=== PATIENT | male | born 1965 | race Caucasian/White ===

== ENCOUNTER 2019-08-28 07:00 | Outpatient (CLI) | payer BC, SELFPAY ==
[2019-08-28 07:12] LABS: Add Urine Microscopic? NO; Appearance Urine Clear (Clear); Bilirubin Urine Negative (Negative); Blood Urine Negative (Negative); Color Urine Yellow (Yellow); Glucose Urine UA Negative (Negative); Ketones Urine Negative (Negative); Leukocyte Esterase Ur Negative (Negative); Nitrate Urine Negative (Negative); Protein Urine Negative (Negative); Urobilinogen Urine 0.2 mg/dL (0.2-1.0)
[2019-08-28 07:18] LABS: Basophils Absolute Auto 0.05 K/mm3 (0.00-0.10); Eosinophils Absolute Auto 0.17 K/mm3 (0.02-0.50); Eosinophils Percent Auto 3.4 % (1.0-6.0); Hematocrit 43.8 % (40.0-54.0); Hemoglobin 14.2 g/dL (14.0-18.0); Immature Granulocyte Absolute 0.02 K/mm3 (0.00-0.00); Immature Granulocyte Percent A 0.4 % (0.0-0.0); Lymphocytes Absolute Auto 2.16 K/mm3 (1.10-4.50); Lymphocytes Percent Auto 43.6 % (18.0-42.0); Mean Corpuscular HGB Conc 32.4 g/dL (32.0-36.0); Mean Corpuscular Hemoglobin 29.1 pg (27.0-31.0); Mean Corpuscular Volume 89.8 fL (78.0-102.0); Mean Platelet Volume 10.7 fl (8.7-11.0); Monocytes Percent Auto 8.1 % (2.0-11.0); Neutrophils Absolute Auto 2.2 K/mm3 (1.7-7.2); Neutrophils Percent Auto 43.5 % (50.0-70.0); Platelet Count Result 222 K/mm3 (150-420); Red Blood Count 4.88 M/mm3 (4.70-6.10); Red Cell Distribution Width 12.4 % (11.6-14.4)
[2019-08-28 08:18] LABS: Alanine Aminotransferase 45 U/L (16-63); Albumin Level 3.9 g/dL (3.4-5.0); Alkaline Phosphatase 66 U/L (46-116); Anion Gap 12.7 mmol/L (7-16); Aspartate Amino Transferase 25 U/L (15-37); Bilirubin,Total 0.4 mg/dL (0.00-1.00); Blood Urea Nitrogen 18 mg/dL (7-18); Calcium 8.7 mg/dL (8.5-10.1); Carbon Dioxide 30 mmol/L (21-32); Chloride 104 mmol/L (98-108); Cholesterol 173 mg/dL (0-200); Creatine Kinase 103 U/L (39-308); Estimated Glomerular Filt Rate > 60; Glucose 105 mg/dL (70-99); HDL Direct 41 mg/dL (40-60); LDL Cholesterol Calculated 109 mg/dL (<130); Osmolality Calculated 295 mOsm/kg (285-295); Potassium 4.7 mmol/L (3.5-5.1); Prostate Specific Antigen 0.2 ng/mL (< OR = 4.0); Sodium 142 mmol/L (136-145); Total Protein 7.1 g/dL (6.4-8.2); Triglycerides 116 mg/dL (0-150)
[2019-08-28 15:04] LABS: Hemoglobin A1C 6.2 % (<5.7)
== END 2019-08-28 07:01 | disposition home or self-care (01) ==
PROVIDERS: PCP Internal Medicine; Visit Provider Internal Medicine
DX: Z00.00 Encounter for general adult medical examination without abnormal findings (principal); Z12.5 Encounter for screening for malignant neoplasm of prostate
CPT/HCPCS: 36415; 80053; 80061; 81003; 82550; 83036; 84153; 85025; G0103

== ENCOUNTER 2019-09-26 07:06 | Outpatient (CLI) | payer BC, SELFPAY ==
[2019-09-26 07:15] LABS: Basophils Absolute Auto 0.07 K/mm3 (0.00-0.10); Basophils Percent Auto 1.1 % (0.0-1.0); Eosinophils Absolute Auto 0.13 K/mm3 (0.02-0.50); Eosinophils Percent Auto 2.1 % (1.0-6.0); Hematocrit 46.5 % (40.0-54.0); Hemoglobin 15.2 g/dL (14.0-18.0); Immature Granulocyte Absolute 0.02 K/mm3 (0.00-0.00); Immature Granulocyte Percent A 0.3 % (0.0-0.0); Lymphocytes Absolute Auto 2.34 K/mm3 (1.10-4.50); Lymphocytes Percent Auto 37.4 % (18.0-42.0); Mean Corpuscular HGB Conc 32.7 g/dL (32.0-36.0); Mean Corpuscular Hemoglobin 29.3 pg (27.0-31.0); Mean Corpuscular Volume 89.8 fL (78.0-102.0); Mean Platelet Volume 10.5 fl (8.7-11.0); Monocytes Absolute Auto 0.55 K/mm3 (0.10-0.90); Monocytes Percent Auto 8.8 % (2.0-11.0); Neutrophils Absolute Auto 3.2 K/mm3 (1.7-7.2); Neutrophils Percent Auto 50.3 % (50.0-70.0); Platelet Count Result 235 K/mm3 (150-420); Red Blood Count 5.18 M/mm3 (4.70-6.10); Red Cell Distribution Width 12.3 % (11.6-14.4); White Blood Count 6.3 K/mm3 (4.8-10.8)
== END 2019-09-26 07:07 ==
LOC: CHSLAB 07:08
PROVIDERS: PCP Internal Medicine; Visit Provider Internal Medicine
DX: D72.820 Lymphocytosis (symptomatic) (principal)
CPT/HCPCS: 36415; 85025

== ENCOUNTER 2020-04-02 07:02 | Outpatient (CLI) | payer BC, SELFPAY ==
[2020-04-02 07:39] LABS: Hemoglobin A1C 5.5 % (<5.7)
[2020-04-02 08:17] LABS: Anion Gap 4 mmol/L (8-16); Blood Urea Nitrogen 18 mg/dL (7-18); Calcium 8.6 mg/dL (8.5-10.1); Carbon Dioxide 31 mmol/L (21-32); Chloride 104 mmol/L (98-108); Estimated Glomerular Filt Rate > 60; Glucose 102 mg/dL (70-99); Osmolality Calculated 289 mOsm/kg (285-295); Potassium 4.3 mmol/L (3.5-5.1); Sodium 139 mmol/L (136-145)
== END 2020-04-02 07:03 | disposition home or self-care (01) ==
LOC: CHSLAB 07:04
PROVIDERS: PCP Internal Medicine; Visit Provider Internal Medicine
DX: R73.01 Impaired fasting glucose (principal)
CPT/HCPCS: 36415; 80048; 83036

== ENCOUNTER 2020-09-09 09:06 | Outpatient (CLI) | payer OTHER, SELFPAY ==
[2020-09-09 09:29] LABS: Add Urine Microscopic? NO; Appearance Urine Clear (Clear); Bilirubin Urine Negative (Negative); Blood Urine Negative (Negative); Color Urine Yellow (Yellow); Glucose Urine UA Negative (Negative); Ketones Urine Negative (Negative); Leukocyte Esterase Ur Negative (Negative); Nitrate Urine Negative (Negative); Protein Urine Negative (Negative); Specific Grav Ur 1.025 (1.010-1.020); Urobilinogen Urine 0.2 mg/dL (0.2-1.0); pH Urine 5.5 (5.0-8.0)
[2020-09-09 09:53] LABS: Hemoglobin A1C 5.7 % (<5.7)
[2020-09-09 10:43] LABS: Alanine Aminotransferase 59 U/L (16-63); Albumin Level 3.9 g/dL (3.4-5.0); Alkaline Phosphatase 67 U/L (46-116); Anion Gap 6 mmol/L (8-16); Aspartate Amino Transferase 25 U/L (15-37); Bilirubin,Total 0.8 mg/dL (0.00-1.00); Blood Urea Nitrogen 17 mg/dL (7-18); Calcium 8.9 mg/dL (8.5-10.1); Carbon Dioxide 28 mmol/L (21-32); Chloride 103 mmol/L (98-108); Cholesterol 171 mg/dL (0-200); Estimated Glomerular Filt Rate > 60; Glucose 91 mg/dL (70-99); HDL Direct 50 mg/dL (40-60); LDL Cholesterol Calculated 104 mg/dL (<130); Osmolality Calculated 285 mOsm/kg (285-295); Potassium 4.9 mmol/L (3.5-5.1); Prostate Specific Antigen 0.3 ng/mL (< OR = 4.0); Sodium 137 mmol/L (136-145); Total Protein 6.9 g/dL (6.4-8.2); Triglycerides 85 mg/dL (0-150)
== END 2020-09-09 09:07 | disposition home or self-care (01) ==
PROVIDERS: PCP Internal Medicine; Visit Provider Internal Medicine
DX: Z00.00 Encounter for general adult medical examination without abnormal findings (principal); E78.2 Mixed hyperlipidemia; R73.01 Impaired fasting glucose; Z12.5 Encounter for screening for malignant neoplasm of prostate
CPT/HCPCS: 36415; 80053; 80061; 81003; 83036; 84153; 86769; G0103

== ENCOUNTER 2021-10-09 06:54 | Outpatient (CLI) | payer OTHER, SELFPAY ==
[2021-10-09 07:24] LABS: Add Urine Microscopic? NO; Appearance Urine Clear (Clear); Basophils Absolute Auto 0.07 K/mm3 (0.00-0.10); Basophils Percent Auto 1.3 % (0.0-1.0); Bilirubin Urine Negative (Negative); Blood Urine Negative (Negative); Color Urine Light Yellow (Yellow); Eosinophils Absolute Auto 0.15 K/mm3 (0.02-0.50); Eosinophils Percent Auto 2.8 % (1.0-6.0); Glucose Urine UA Negative (Negative); Hemoglobin 14.7 g/dL (14.0-18.0); Immature Granulocyte Absolute 0.02 K/mm3 (0.00-0.00); Immature Granulocyte Percent A 0.4 % (0.0-0.0); Ketones Urine Negative (Negative); Leukocyte Esterase Ur Negative LEU/UL (Negative); Lymphocytes Absolute Auto 1.76 K/mm3 (1.10-4.50); Lymphocytes Percent Auto 32.5 % (18.0-42.0); Mean Corpuscular Hemoglobin 29.2 pg (27.0-31.0); Mean Corpuscular Volume 91.3 fL (78.0-102.0); Monocytes Absolute Auto 0.46 K/mm3 (0.10-0.90); Monocytes Percent Auto 8.5 % (2.0-11.0); Neutrophils Percent Auto 54.5 % (50.0-70.0); Nitrate Urine Negative (Negative); Platelet Count Result 231 K/mm3 (150-420); Protein Urine Negative (Negative); Red Blood Count 5.04 M/mm3 (4.70-6.10); Red Cell Distribution Width 12.2 % (11.6-14.4); Specific Grav Ur 1.015 (1.010-1.020); Urobilinogen Urine 0.2 mg/dL (0.2-1.0); White Blood Count 5.4 K/mm3 (4.8-10.8)
[2021-10-09 08:15] LABS: Alanine Aminotransferase 40 U/L (16-63); Albumin Level 3.8 g/dL (3.4-5.0); Alkaline Phosphatase 64 U/L (46-116); Anion Gap 6 mmol/L (8-16); Aspartate Amino Transferase 19 U/L (15-37); Bilirubin,Total 0.5 mg/dL (0.00-1.00); Blood Urea Nitrogen 17 mg/dL (7-18); Calcium 8.8 mg/dL (8.5-10.1); Carbon Dioxide 29 mmol/L (21-32); Chloride 104 mmol/L (98-108); Cholesterol 170 mg/dL (0-200); Creatine Kinase 92 U/L (39-308); Estimated Glomerular Filt Rate > 60; Glucose 98 mg/dL (70-99); HDL Direct 44 mg/dL (40-60); LDL Cholesterol Calculated 106 mg/dL (<130); Osmolality Calculated 289 mOsm/kg (285-295); Potassium 4.7 mmol/L (3.5-5.1); Prostate Specific Antigen 0.2 ng/mL (< OR = 4.0); Sodium 139 mmol/L (136-145); Total Protein 6.8 g/dL (6.4-8.2); Triglycerides 98 mg/dL (0-150)
[2021-10-09 08:18] LABS: Hemoglobin A1C 5.7 % (<5.7)
== END 2021-10-09 06:55 | disposition home or self-care (01) ==
LOC: CHSLAB 06:57
PROVIDERS: PCP Internal Medicine; Visit Provider Internal Medicine
DX: E78.2 Mixed hyperlipidemia (principal); R73.01 Impaired fasting glucose; R53.82 Chronic fatigue, unspecified; Z12.5 Encounter for screening for malignant neoplasm of prostate
CPT/HCPCS: 36415; 80053; 80061; 81003; 82550; 83036; 84153; 85025; G0103

== ENCOUNTER 2022-08-17 10:23 | Outpatient (CLI) | payer OTHER, SELFPAY ==
--- NOTE | ~2022-08-17 | XR_ITS ---
EXAMINATION: XR shoulder RT min 2V INDICATION: Right shoulder pain TECHNIQUE: Four views of the right shoulder are obtained on six radiographs. COMPARISON: None FINDINGS: Normal alignment. No fracture. There is mild osteoarthritis of the glenohumeral and acromio clavicular joints. Soft tissues are unremarkable. IMPRESSION: 1. Mild osteoarthritis. Reviewed, dictated and finalized at location L. [facility] [employer] IMPRESSION: 1. Mild osteoarthritis.
== END 2022-08-17 10:24 | disposition home or self-care (01) ==
LOC: CHSIMG 10:26
PROVIDERS: PCP Internal Medicine; Visit Provider Internal Medicine
DX: M25.511 Pain in right shoulder (principal); M19.011 Primary osteoarthritis, right shoulder
CPT/HCPCS: 73030

== ENCOUNTER 2022-08-30 14:10 | Outpatient (RCR) | payer OTHER, SELFPAY ==
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
== END 2022-09-09 09:53 | disposition home or self-care (01) ==
LOC: CHSPT 14:10
PROVIDERS: PCP Internal Medicine; Visit Provider Internal Medicine
DX: M25.511 Pain in right shoulder (principal)
CPT/HCPCS: 97014; 97110; 97140; 97161; G0283

== ENCOUNTER 2022-10-22 09:39 | Outpatient (CLI) | payer OTHER, SELFPAY ==
[2022-10-22 09:54] LABS: Appearance Urine Clear (Clear); Bilirubin Urine Negative (Negative); Blood Urine Negative (Negative); Color Urine Light Yellow (Yellow); Glucose Urine UA Negative (Negative); Ketones Urine Negative (Negative); Leukocyte Esterase Ur Negative (Negative); Nitrate Urine Negative (Negative); Protein Urine Negative (Negative); Urobilinogen Urine 0.2 mg/dL (0.2-1.0)
[2022-10-22 09:56] LABS: Basophils Absolute Auto 0.08 K/mm3 (0.00-0.10); Basophils Percent Auto 1.3 % (0.0-1.0); Eosinophils Absolute Auto 0.16 K/mm3 (0.02-0.50); Eosinophils Percent Auto 2.6 % (1.0-6.0); Hematocrit 45.5 % (40.0-54.0); Hemoglobin 14.5 g/dL (14.0-18.0); Immature Granulocyte Absolute 0.03 K/mm3 (0.00-0.00); Immature Granulocyte Percent A 0.5 % (0.0-0.0); Lymphocytes Absolute Auto 2.14 K/mm3 (1.10-4.50); Lymphocytes Percent Auto 34.9 % (18.0-42.0); Mean Corpuscular HGB Conc 31.9 g/dL (32.0-36.0); Mean Platelet Volume 10.7 fl (8.7-11.0); Monocytes Percent Auto 8.2 % (2.0-11.0); Neutrophils Absolute Auto 3.2 K/mm3 (1.7-7.2); Neutrophils Percent Auto 52.5 % (50.0-70.0); Platelet Count Result 242 K/mm3 (150-420); White Blood Count 6.1 K/mm3 (4.8-10.8)
[2022-10-22 10:02] LABS: Add Urine Microscopic? NO
[2022-10-22 10:04] LABS: Hemoglobin A1C 5.6 % (<5.7)
[2022-10-22 10:38] LABS: Alanine Aminotransferase 35 U/L (16-63); Albumin Level 3.8 g/dL (3.4-5.0); Alkaline Phosphatase 65 U/L (46-116); Anion Gap 7 mmol/L (8-16); Aspartate Amino Transferase 19 U/L (15-37); Bilirubin,Total 0.6 mg/dL (0.00-1.00); Blood Urea Nitrogen 17 mg/dL (7-18); Calcium 8.7 mg/dL (8.5-10.1); Carbon Dioxide 30 mmol/L (21-32); Chloride 105 mmol/L (98-108); Cholesterol 177 mg/dL (0-200); Creatine Kinase 81 U/L (39-308); Estimated Glomerular Filt Rate > 60; Glucose 96 mg/dL (70-99); HDL Direct 44 mg/dL (40-60); LDL Cholesterol Calculated 112 mg/dL (<130); Osmolality Calculated 295 mOsm/kg (285-295); Potassium 4.7 mmol/L (3.5-5.1); Prostate Specific Antigen 0.3 ng/mL (< OR = 4.0); Sodium 142 mmol/L (136-145); Triglycerides 105 mg/dL (0-150)
== END 2022-10-22 09:40 | disposition home or self-care (01) ==
LOC: CHSLAB 09:42
PROVIDERS: PCP Internal Medicine; Visit Provider Internal Medicine
DX: Z00.00 Encounter for general adult medical examination without abnormal findings (principal); E78.2 Mixed hyperlipidemia; R73.01 Impaired fasting glucose; Z12.5 Encounter for screening for malignant neoplasm of prostate
CPT/HCPCS: 36415; 80053; 80061; 81003; 82550; 83036; 84153; 85025; G0103

== ENCOUNTER 2023-11-01 07:22 | Outpatient (CLI) | payer OTHER, SELFPAY ==
[2023-11-01 07:38] LABS: Appearance Urine Clear (Clear); Basophils Absolute Auto 0.08 K/mm3 (0.00-0.10); Basophils Percent Auto 1.4 % (0.0-1.0); Bilirubin Urine Negative (Negative); Blood Urine Negative (Negative); Color Urine Yellow (Yellow); Eosinophils Absolute Auto 0.19 K/mm3 (0.02-0.50); Eosinophils Percent Auto 3.3 % (1.0-6.0); Glucose Urine UA Negative (Negative); Hematocrit 42.8 % (40.0-54.0); Hemoglobin 13.7 g/dL (14.0-18.0); Immature Granulocyte Absolute 0.03 K/mm3 (0.00-0.00); Immature Granulocyte Percent A 0.5 % (0.0-0.0); Ketones Urine Negative (Negative); Leukocyte Esterase Ur Negative (Negative); Lymphocytes Absolute Auto 2.25 K/mm3 (1.10-4.50); Lymphocytes Percent Auto 38.8 % (18.0-42.0); Mean Corpuscular Hemoglobin 29.1 pg (27.0-31.0); Mean Corpuscular Volume 90.9 fL (78.0-102.0); Mean Platelet Volume 10.5 fl (8.7-11.0); Monocytes Absolute Auto 0.53 K/mm3 (0.10-0.90); Monocytes Percent Auto 9.1 % (2.0-11.0); Neutrophils Absolute Auto 2.72 K/mm3 (1.70-7.20); Neutrophils Percent Auto 46.9 % (50.0-70.0); Nitrate Urine Negative (Negative); Platelet Count Result 206 K/mm3 (150-420); Protein Urine Negative (Negative); Red Blood Count 4.71 M/mm3 (4.70-6.10); Red Cell Distribution Width 12.5 % (11.6-14.4); Specific Grav Ur 1.025 (1.010-1.020); Urobilinogen Urine 0.2 mg/dL (0.2-1.0); White Blood Count 5.8 K/mm3 (4.8-10.8)
[2023-11-01 07:43] LABS: Add Urine Microscopic? NO
[2023-11-01 07:51] LABS: Hemoglobin A1C 5.5 % (<5.7)
[2023-11-01 08:32] LABS: Alanine Aminotransferase 32 U/L (16-63); Albumin Level 3.5 g/dL (3.4-5.0); Alkaline Phosphatase 58 U/L (46-116); Anion Gap 4 mmol/L (4-12); Aspartate Amino Transferase 16 U/L (15-37); Bilirubin,Total 0.5 mg/dL (0.00-1.00); Blood Urea Nitrogen 22 mg/dL (7-18); Calcium 8.4 mg/dL (8.5-10.1); Carbon Dioxide 30 mmol/L (21-32); Chloride 104 mmol/L (98-108); Cholesterol 175 mg/dL (0-200); Creatine Kinase 99 U/L (39-308); Estimated Glomerular Filt Rate > 60; Free T3 2.77 pg/mL (2.18-3.98); Free T4 Free Thyroxine 0.84 ng/dL (0.76-1.46); Glucose 102 mg/dL (70-99); HDL Direct 47 mg/dL (40-60); LDL Cholesterol Calculated 109 mg/dL (<130); Osmolality Calculated 289 mOsm/kg (285-295); Potassium 4.3 mmol/L (3.5-5.1); Prostate Specific Antigen 0.3 ng/mL (< OR = 4.0); Sodium 138 mmol/L (136-145); Thyroid Stimulating Hormone 4.45 uIU/mL (0.36-3.74); Total Protein 6.4 g/dL (6.4-8.2); Triglycerides 96 mg/dL (0-150)
== END 2023-11-01 07:23 | disposition home or self-care (01) ==
LOC: CHSLAB 07:25
PROVIDERS: PCP Internal Medicine; Visit Provider Internal Medicine
DX: Z00.00 Encounter for general adult medical examination without abnormal findings (principal); E78.2 Mixed hyperlipidemia; R53.82 Chronic fatigue, unspecified; R73.01 Impaired fasting glucose; Z12.5 Encounter for screening for malignant neoplasm of prostate
CPT/HCPCS: 36415; 80053; 80061; 81003; 82550; 83036; 84153; 84439; 84443; 84481; 85025; G0103

== ENCOUNTER 2023-11-03 08:13 | Outpatient (CLI) | payer OTHER, SELFPAY ==
[2023-11-07 11:28] LABS: Thyroid Peroxidase Antibodies 257 IU/mL (<9)
== END 2023-11-03 08:14 | disposition home or self-care (01) ==
LOC: CHSLAB 08:14
PROVIDERS: PCP Internal Medicine; Visit Provider Internal Medicine
DX: E03.9 Hypothyroidism, unspecified (principal)
CPT/HCPCS: 36415; 84442; 86376

== ENCOUNTER 2023-11-04 07:16 | Outpatient (CLI) | payer OTHER, SELFPAY ==
--- NOTE | ~2023-11-04 | US_ITS ---
EXAMINATION: US thyroid DATE: 11/04/2023 07:38 INDICATION: Hypothyroidism TECHNIQUE: Multiple ultrasound images of the thyroid were obtained. COMPARISON: None. FINDINGS: The right thyroid lobe measures 4.8 x 2.4 x 2.5 cm. The left thyroid lobe measures 4.3 x 1.7 x 2.2 c m. Thyroid isthmus measures 5 mm thickness. No discrete nodules identified. There is heterogeneous ec hogenicity with coarsened echotexture and diffuse increased vascular flow on color Doppler consistent with thyroiditis. IMPRESSION: 1. Heterogeneous thyroid with coarsened echotexture and increased vascular flow which can be seen wit h thyroiditis. No discrete thyroid nodules. Reviewed, dictated and finalized at location A. IMPRESSION: 1. Heterogeneous thyroid with coarsened echotexture and increased vascular flow which can be seen with thyroiditis. No discrete thyroid nodules.
== END 2023-11-04 07:17 | disposition home or self-care (01) ==
LOC: CHSIMG 07:18
PROVIDERS: PCP Internal Medicine; Visit Provider Internal Medicine
DX: E03.9 Hypothyroidism, unspecified (principal)
CPT/HCPCS: 76536

== ENCOUNTER 2023-11-14 06:36 | Day surgery (SDC) | payer OTHER, SELFPAY ==
[2023-10-31 13:17] VITALS: BMI 30.7
[2023-11-14 07:43] VITALS: BP 110/80; PULSE 70; RESP 12; TEMP 36.6; O2SAT 99
--- NOTE | 2023-11-14 07:53 | P.PNAN_ITS ---
Anes - Initial Pre Proc Eval Procedure: Operation Date: 11/14/23 10:00 Proposed Procedures p Diagnostic Colonoscopy - Anibal Coyle DO Date/Time: 11/14/23 07:53 Surgeon: Anibal Coyle DO Pre Op Diagnosis: Previous polyps Patient Data Age: 58 Gender: M Height: 1.8 m Weight: 98 kg Last Vital Signs Temp 36.6 C 11/14/23 07:43 Pulse 70 11/14/23 07:43 Resp 12 11/14/23 07:43 BP 110/80 11/14/23 07:43 Pulse Ox 99 11/14/23 07:43 O2 Del Method Room Air 11/14/23 07:43 Allergies Allergy/AdvReac Type Severity Reaction Status Date / Time No Known Allergies Allergy Verified 11/14/23 07:39 Home Medications Medication Instructions Recorded Confirmed Type atorvastatin 40 mg tablet 40 mg PO DAILY 10/31/23 11/14/23 History buspirone 15 mg tablet 15 mg PO DIRECTED 10/31/23 11/14/23 History multivitamin 1 tablet PO DAILY 10/31/23 11/14/23 History rizatriptan 10 mg disintegrating 10 mg PO DIRECTED 10/31/23 11/14/23 History tablet Patient hx anesthesia problems: none Family hx anesthesia problems: none Results Review: All pre-operative results and documents have been reviewed as part of the pre- operative evaluation. [facility] [place] Social History Social History Smoking status: Never smoker Alcohol intake: current Drinks per week: 3 Substance use type: does not use Living arrangements: with family Anes - Eval Final PreProcedure Day of Procedure 11/14/23 07:53 Patient weight: overweight Heart: regular rate and rhythm Lungs: clear to auscultation Airway: Mallampati scale class II Neurological: alert and oriented Last oral intake: >/= 8 hours ASA classification: II Emergent: no Anesthetic plan: proceed Anesthesia type and monitoring: general GIVS and standard monitoring Results Review: All pre-operative results and documents have been reviewed as part of the pre- operative evaluation. Informed Consent: The patient's anesthetic plan and its attendant risks and benefits were discussed with the patient/family/POA. Questions were solicited and answers provided to the satisfaction of the patient/family/POA.
[2023-11-14] MEDS: LACTATED RINGERS 1,000 ML 150 ML IV CONT (07:59)
--- NOTE | 2023-11-14 08:03 | PM.IMHP ---
H&P: HPI History of Present Illness Date/Time: 11/14/23 08:03 Chief Complaint: History of colon polyps Narrative: this is a 58-year-old man who presents for colonoscopy. His last colonoscopy was about 6 years ago. He had small polyps removed at that time. He denies any hematochezia or melena denies family history of colon cancer. Review of Systems Review of Systems: All systems reviewed & are unremarkable except as noted in HPI and below Constitutional: Constitutional: Denies chills, Denies fever(s), Denies headache(s) and Denies weight loss Eyes: Eyes: Denies change in vision ENT: Denies dizziness, Denies headache(s), Denies neck mass and Denies throat swelling Cardiovascular: Cardiovascular: Denies chest pain, Denies lightheadedness and Denies dyspnea Respiratory: Respiratory: Denies cough, Denies dyspnea and Denies wheezing Gastrointestinal: Gastrointestinal: Denies abdominal pain, Denies change in bowel habits, Denies nausea and Denies vomiting Genitourinary: Genitourinary: Denies hematuria and Denies dysuria Musculoskeletal: Musculoskeletal: Reports as per HPI Integumentary/Breasts: Skin/Breast: Reports as per HPI Neurologic: Denies dizziness and Denies headache(s) Allergic/Immunologic: Allergic/Immunologic: Denies throat swelling and Denies wheezing PMFSH Social History Social History Smoking status: Never smoker Alcohol intake: current Drinks per week: 3 Substance use type: does not use Living arrangements: with family Meds Home Medications and Allergies Home Medications Medication Instructions Recorded Confirmed Type atorvastatin 40 mg tablet 40 mg PO DAILY 10/31/23 11/14/23 History buspirone 15 mg tablet 15 mg PO DIRECTED 10/31/23 11/14/23 History multivitamin 1 tablet PO DAILY 10/31/23 11/14/23 History rizatriptan 10 mg disintegrating 10 mg PO DIRECTED 10/31/23 11/14/23 History tablet Allergies Allergy/AdvReac Type Severity Reaction Status Date / Time No Known Allergies Allergy Verified 11/14/23 07:39 Vital Signs Vital Signs - 24 hr 11/14/23 07:43 Temperature 36.6 C Pulse Rate 70 Respiratory Rate 12 Blood Pressure 110/80 Pulse Oximetry 99 Oxygen Delivery Room Air Exam Const: General: no acute distress and alert Orientation/consciousness: patient oriented x3 HENMT: Head: normocephalic and atraumatic Ears: hearing grossly normal bilaterally Face/Nose/Sinus: Normal nares present Mouth: Yes Normal oral and palatal mucosa present Eyes: Periorbital: periorbital findings normal Sclera: sclerae normal EOM: EOMs intact bilaterally Neck: Neck: normal visual inspection, no lymphadenopathy and trachea midline Chest: Chest palpation & inspection: normal inspection of the chest Resp: Effort & Inspection: normal respiratory effort Auscultation: clear to auscultation bilaterally Cardio: Jugular venous distension: no JVD Rate: regular rate Rhythm: regular rhythm Heart sounds: S1 normal heart sound present and S2 normal heart sound present Peripheral pulses: Peripheral pulses 2+ throughout GI: Inspection: normal to inspection GI Palp: Yes Soft to palpation, No Tenderness to palpation present (GI), No Guarding due to palpation present (GI) and No Rebound tenderness present Percussion: Yes normal to percussion Auscultation: normal bowel sounds : General: Yes no CVA tenderness Back/Spine/Pelvis: Back: no CVA tenderness Neuro: General: patient oriented x3, no focal motor deficits and CN's II-XI intact bilaterally Cognition (Neuro): normal cognition Speech: normal speech Motor exam (neuro): 5/5 motor strength present throughout Extrem: General: capillary refill normal and no clubbing, cyanosis or edema Assessment and Plan Assessment and plan (1) Hx of colonic polyps: Code(s): Z86.010 - Personal history of colonic polyps Status: Acute Assessment and Plan: Chris corrigan
[2023-11-14 08:31] VITALS: BP 104/67; PULSE 67; RESP 15; O2SAT 99
[2023-11-14 08:41] VITALS: BP 97/72; PULSE 68; RESP 18; O2SAT 98
[2023-11-14 08:51] VITALS: BP 100/73; PULSE 63; RESP 18; O2SAT 100
--- NOTE | 2023-11-14 09:09 | WPDANESPN ---
Anes - Prog Note Post-Op Date/Time: 11/14/23 09:09 Cardiovascular status: normal Respiratory status: normal Airway patency: baseline Mental status: baseline Post-Op hydration status: normal Vital Signs: Last Vital Signs Temp 36.6 C 11/14/23 07:43 Pulse 63 11/14/23 08:51 Resp 18 11/14/23 08:51 BP 100/73 11/14/23 08:51 Pulse Ox 100 11/14/23 08:51 O2 Del Method Room Air 11/14/23 08:51 Pain Score (VAS): 0 I/O: Intake & Output 11/13/23 11/14/23 11/14/23 23:59 07:59 15:59 Intake Total 600 Balance 600 Patient Feedback: Patient satisfied with anesthetic care.
== END 2023-11-14 09:05 | disposition home or self-care (01) ==
PROVIDERS: PCP Internal Medicine; Visit Provider Surgery
PROC: 0DJD8ZZ Inspection of Lower Intestinal Tract, Via Natural or Artificial Opening Endoscopic (ICD-10-PCS; CPT 45378; principal; 2023-11-14 10:00)
DX: Z86.010 Personal history of colon polyps (principal); D12.5 Benign neoplasm of sigmoid colon; K57.30 Diverticulosis of large intestine without perforation or abscess without bleeding
CPT/HCPCS: 45380

== ENCOUNTER 2023-11-14 08:55 | Outpatient (NON) | payer OTHER, SELFPAY | END 2023-11-14 08:56 | disposition home or self-care (01) | LOC: ANHLAB 11-15 08:57 | PROVIDERS: PCP Internal Medicine; Visit Provider Surgery | DX: Z86.010 Personal history of colon polyps (principal) | CPT/HCPCS: 88305 ==

== ENCOUNTER 2024-10-03 08:43 | Outpatient (CLI) | payer OTHER, SELFPAY ==
[2024-10-03 09:03] LABS: Hematocrit 44.8 % (40.0-54.0); Hemoglobin 14.4 g/dL (14.0-18.0); Mean Corpuscular HGB Conc 32.1 g/dL (32-36); Mean Corpuscular Volume 90.1 fL (78.0-102.0); Mean Platelet Volume 10.3 fl (8.7-11.0); Platelet Count Result 248 K/mm3 (150-420); Red Blood Count 4.97 M/mm3 (4.70-6.10); Red Cell Distribution Width 12.3 % (11.6-14.4); White Blood Count 5.6 K/mm3 (4.8-10.8)
[2024-10-03 09:06] LABS: Add Urine Microscopic? NO; Appearance Urine Clear (Clear); Bilirubin Urine Negative (Negative); Blood Urine Negative (Negative); Color Urine Light Yellow (Yellow); Glucose Urine UA Negative (Negative); Ketones Urine Negative (Negative); Leukocyte Esterase Ur Negative (Negative); Nitrate Urine Negative (Negative); Protein Urine Negative (Negative); Specific Grav Ur 1.015 (1.010-1.020); Urobilinogen Urine 0.2 mg/dL (0.2-1.0); pH Urine 6.5 (5.0-8.0)
[2024-10-03 09:12] LABS: Hemoglobin A1C 5.9 % (<5.7)
[2024-10-03 09:44] LABS: Alanine Aminotransferase 27 U/L (16-63); Albumin Level 3.8 g/dL (3.4-5.0); Alkaline Phosphatase 89 U/L (46-116); Anion Gap 4 mmol/L (4-12); Aspartate Amino Transferase 13 U/L (15-37); Bilirubin,Total 0.7 mg/dL (0.00-1.00); Blood Urea Nitrogen 18 mg/dL (7-18); Calcium 8.9 mg/dL (8.5-10.1); Carbon Dioxide 31 mmol/L (21-32); Chloride 104 mmol/L (98-108); Cholesterol 173 mg/dL (0-200); Creatine Kinase 86 U/L (39-308); Estimated Glomerular Filt Rate > 60; Free T4 Free Thyroxine 0.94 ng/dL (0.76-1.46); Glucose 103 mg/dL (70-99); HDL Direct 50 mg/dL (40-60); LDL Cholesterol Calculated 106 mg/dL (<130); Osmolality Calculated 289 mOsm/kg (285-295); Potassium 4.8 mmol/L (3.5-5.1); Prostate Specific Antigen 0.3 ng/mL (< OR = 4.0); Sodium 139 mmol/L (136-145); Thyroid Stimulating Hormone 3.45 uIU/mL (0.36-3.74); Total Protein 7.1 g/dL (6.4-8.2); Triglycerides 86 mg/dL (0-150)
[2024-10-03 09:46] LABS: CRP < 0.1 mg/dL (0.0-0.9)
[2024-10-03 09:47] LABS: Free T3 2.82 pg/mL (2.18-3.98)
[2024-10-03 10:02] LABS: Erythrocyte Sedimentation Rate 9 mm/hr (0-20)
== END 2024-10-03 08:44 | disposition home or self-care (01) ==
LOC: CHSLAB 08:46
PROVIDERS: PCP Internal Medicine; Visit Provider Internal Medicine
DX: Z00.00 Encounter for general adult medical examination without abnormal findings (principal); R73.01 Impaired fasting glucose; E06.3 Autoimmune thyroiditis; E78.2 Mixed hyperlipidemia; M25.572 Pain in left ankle and joints of left foot; R53.82 Chronic fatigue, unspecified
CPT/HCPCS: 36415; 80053; 80061; 81003; 82550; 83036; 84153; 84439; 84443; 84481; 85027; 85652; 86140; 86765; G0103

== ENCOUNTER 2025-04-10 07:12 | Outpatient (CLI) | payer OTHER, SELFPAY ==
[2025-04-10 07:43] LABS: Hemoglobin A1C 5.8 % (<5.7)
[2025-04-10 08:05] LABS: Anion Gap 7 mmol/L (4-12); Blood Urea Nitrogen 16 mg/dL (9-20); Calcium 9.3 mg/dL (8.4-10.2); Carbon Dioxide 28 mmol/L (22-30); Chloride 106 mmol/L (98-107); Estimated Glomerular Filt Rate > 60; Glucose 99 mg/dL (65-110); Osmolality Calculated 293 mOsm/kg (285-295); Potassium 4.9 mmol/L (3.4-5.0); Sodium 141 mmol/L (137-145)
== END 2025-04-10 07:13 | disposition home or self-care (01) ==
PROVIDERS: PCP Internal Medicine; Visit Provider Internal Medicine
DX: R73.03 Prediabetes (principal)
CPT/HCPCS: 36415; 80048; 83036